=== PATIENT | male | born 1990 | race Caucasian/White ===

== ENCOUNTER 2018-08-08 17:22 | Emergency (ER) | payer SELFPAY ==
[~2018-08-08] VITALS: Ht 180.3 cm; Wt 85.5 kg
[2018-08-08 17:27] VITALS: Ht 180.3 cm; Wt 85.5 kg
[2018-08-08 20:09] VITALS: BP 132/66
== END 2018-08-08 20:09 | disposition home or self-care (01) ==
LOC: D.ER 17:22
DX: S01.81XA Laceration without foreign body of other part of head, initial encounter (principal); W45.0XXA Nail entering through skin, initial encounter; Y93.89 Activity, other specified; Y92.89 Other specified places as the place of occurrence of the external cause; F17.200 Nicotine dependence, unspecified, uncomplicated